=== PATIENT | male | born 1975 | race Caucasian/White ===

== ENCOUNTER 2020-11-21 20:20 | Emergency (ER) | payer BC, SELFPAY ==
--- NOTE | 2020-11-21 | ECG_ITS ---
Test Reason : CHEST PAIN Blood Pressure : / mmHG Vent. Rate : 102 BPM Atrial Rate : 102 BPM P-R Int : 124 ms QRS Dur : 096 ms QT Int : 354 ms P-R-T Axes : 021 -12 012 degrees QTc Int : 461 ms Sinus tachycardia Otherwise normal ECG No previous ECGs available Referred By: Patrice Amaral Electronically Signed By:Ap Campbell
--- NOTE | ~2020-11-21 | CT_ITS ---
EXAMINATION: CT ANGIOGRAM OF THE CHEST WITH AND WITHOUT CONTRAST (CT PULMONARY ANGIOGRAM FOR PE) CLINICAL INFORMATION: Reason for Exam chest pain COMPARISON: None TECHNIQUE: Prior to contrast administration, noncontrast localization images were obtained. Subsequently, multidetector volumetric imaging was performed from the thoracic inlet to below the diaphragms following the administration of 71 mL Omnipaque 350 intravenous contrast. No contrast reaction reported Sagittal, coronal, and MIP oblique sagittal reformatted images were obtained on the CT workstation, uploaded to PACS, and reviewed. This CT examination was performed using dose optimization techniques as appropriate, variously including the following: *Automated exposure control *Adjustment of mA and/or kV according to patient size (this includes techniques or standardized protocols for targeted exams where dose is matched to indication/reason for exam; i.e. extremities or head) *Use of iterative reconstruction technique Total exam dose-length product 537 mGy-cm FINDINGS: QUALITY OF STUDY/CONTRAST BOLUS: Satisfactory. PULMONARY ARTERIES: No central or segmental pulmonary emboli. THORACIC AORTA: No aneurysm or dissection. LUNG: There is bibasilar atelectasis. PLEURA: No pleural effusion or pneumothorax. MEDIASTINUM: Normal heart size. No pericardial effusion. No hilar or mediastinal lymphadenopathy. No evidence of septal bowing or right heart strain. CHEST WALL/AXILLA: No axillary or internal mammary lymphadenopathy. OSSEOUS STRUCTURES: No acute or suspicious osseous abnormality. UPPER ABDOMEN: Visualized liver, spleen, pancreas and bilateral adrenal glands are unremarkable. No reflux of contrast into the hepatic veins to suggest elevated right heart pressures. CT/CT angio chest PE protocol IMPRESSION: No evidence of PE. No evidence of aortic dissection. Bibasilar dependent atelectasis. VTE: negative
--- NOTE | ~2020-11-21 | XR_ITS ---
EXAMINATION: XR CHEST CLINICAL INFORMATION: Pain COMPARISON: None TECHNIQUE: 2 views view of the chest was obtained. FINDINGS: By basilar atelectasis/early infiltrates. The mid-upper lung zones are grossly clear. There is no significant effusion. Indistinct hilar structures. Not felt to be pathologically enlarged. XR/XR chest 1V IMPRESSION: By basilar areas of atelectasis/infiltrate.
[2020-11-21 20:54] VITALS: BP 142/81; PULSE 90; RESP 18; TEMP 37; O2SAT 95; BMI 29.4
[2020-11-21 21:12] LABS: MANUAL DIFF FLAG NO
[2020-11-21 21:16] LABS: Basophils Percent Auto 0.3 % (0-2); Eosinophils Percent Auto 0.1 % (0-4); Hematocrit 45.1 % (42-52); Hemoglobin 15.2 g/dl (14.0-18.0); Imm Gran Abs Auto 0.07 X10*3/uL (0.00-0.03); Imm Gran Pct Auto 0.4 % (0.0-0.4); Lymphocytes Absolute Auto 1.2 X10*3/uL (1.2-4.9); Lymphocytes Percent Auto 7.4 % (20-40); Mean Corpuscular HGB Conc 33.7 g/dl (31.0-36.0); Mean Corpuscular Hemoglobin 30.4 pg (27.0-33.0); Mean Corpuscular Volume 90.2 fL (80-98); Mean Platelet Volume 9.9 fL (9.4-12.4); Monocytes Absolute Auto 1.1 X10*3/uL (0.1-1.2); Monocytes Percent Auto 6.9 % (2-11); Neutrophils Absolute Auto 13.4 X10*3/uL (2.0-8.3); Neutrophils Percent Auto 84.9 % (45-73); Platelet Count 260 X10*3/uL (160-400); Red Cell Distribution Width 12.8 % (11.0-16.0); White Blood Count 15.8 X10*3/uL (4.8-10.8)
[2020-11-21 21:38] LABS: Anion Gap 18 (12-20); Blood Urea Nitrogen 17 mg/dL (9-16); Calcium 9.4 mg/dL (8.4-10.2); Carbon Dioxide 21 mmol/L (22-29); Chloride 101 mmol/L (96-108); Creatinine Clr Calc Pharmacy 134.9; Estimated Glomerular Filt Rate > 60; Glucose Random 113 mg/dL (60-115); Potassium 4.1 mmol/L (3.3-5.1); Sodium 136 mmol/L (135-145)
[2020-11-21 21:44] LABS: Troponin-I High Sensitivity 3.8 ng/L (<3.5-35.0)
--- NOTE | 2020-11-21 21:45 | ED_ITS ---
HPI - Chest Pain General Chief Complaint: Chest Pain Stated Complaint: CHEST PAIN Time Seen by Provider: 11/21/20 21:45 Source: patient Mode of arrival: ambulatory Limitations: no limitations History of Present Illness HPI narrative: Patient history of depression no known coronary artery disease comes here for chest discomfort since 08:00 when he woke up feels heavy in the chest read pain goes to the back occasional cough slight shortness of breath no fever or chills no body ache no malaise . Patient stays at home most of the times denies any contact with COVID. Patient never had similar pain in the past Related Data Previous Rx's Medication Instructions Recorded bupropion HCl 150 mg 24 hr tablet, 150 mg PO QAM 10 Days #10 tab 08/21/20 extended release bupropion HCl 300 mg 24 hr tablet, 300 mg PO QAM 10 Days #10 tab 08/21/20 extended release vilazodone 20 mg tablet 20 mg PO DAILY 10 Days #10 tab 08/21/20 azithromycin [Zithromax] 250 mg PO DAILY 4 Days #4 tab 11/22/20 Allergies Allergy/AdvReac Type Severity Reaction Status Date / Time No Known Allergies Allergy Verified 11/21/20 20:53 Review of Systems Review of Systems: Constitutional : No Weight loss, No Fever, No Chills ENT/Mouth : No sore throat, No Rhinorrhea Eyes: No Eye Pain, No Swelling Cardiovascular : + Chest Pain, no palpitations Respiratory : occasional Cough, No Sputum, no shortness of breath Gastrointestinal : no Nausea, No Vomiting, No Diarrhea, No abdominal Pain, no black stools Genitourinary : No Dysuria, No Urinary Frequency Musculoskeletal : No joint pain, No Myalgias, No Joint Swelling Skin : No Skin Lesions, No rash Neuro : No Weakness, No Numbness, No Dizziness, No Headache Psych : No Anxiety/Panic, No Depression Heme/Lymph: No Bruising, No Lymphadenopathy Endocrine : No Polyuria, No Polydipsia All other systems reviewed and are negative [facility] Social History Social History Advance Directives: No Advance Directives Information Provided: Yes Physical Exam Vital Signs: Vital Signs: Last Vital Signs Temp 98.6 F 11/21/20 20:54 Pulse 94 11/21/20 23:21 Resp 22 H 11/21/20 23:21 BP 133/87 11/21/20 23:21 Pulse Ox 96 11/21/20 23:21 Body Mass Index 29.4 Appearance: Alert. Oriented X3. Slight anxious no acute distress Eyes: Pupils equal, round and reactive to light. ENT: Pharynx normal. Neck: Normal inspection. Neck supple. CVS: Normal heart rate and rhythm. Pulses normal. Respiratory: No respiratory distress. Breath sounds normal. Abdomen: Soft and nontender. Bowel sounds are present, no mass palpable, no CVA tenderness Skin: Skin warm and dry. Normal skin color. Normal skin turgor. Extremities: No lower extremity edema. No calf tenderness Neuro: Oriented X 3. No motor deficit. No sensory deficit. MDM - Chest Pain MDM Narrative Medical decision making narrative: Patient with nonspecific chest pain with slight J-point elevation in 1 in aVL without any reciprocal changes will repeat EKG to CTA chest to rule out PE initial high sensitive troponin is negative Patient repeat high sensitive troponin without any significant delta change CT chest negative for PE likely patient has pleurisy will give a course of Zithromax advised to follow with cardiology for further evaluation Differential Diagnosis Differential diagnosis: Likely atypical chest pain and chest pain Lab Data Attestation: I reviewed the patient's lab results. Result diagrams: 11/21/20 21:07 11/21/20 21:07 Labs: Lab Results 11/21/20 11/21/20 11/21/20 Range/Units 21:06 21:07 21:07 WBC 15.8 H (4.8-10.8) X10*3/uL RBC 5.00 (4.60-5.80) X10*6/uL Hgb 15.2 (14.0-18.0) g/dl Hct 45.1 (42-52) % MCV 90.2 (80-98) fL MCH 30.4 (27.0-33.0) pg MCHC 33.7 (31.0-36.0) g/dl RDW 12.8 (11.0-16.0) % Plt Count 260 (160-400) X10*3/uL MPV 9.9 (9.4-12.4) fL Immature Gran % (Auto) 0.4 (0.0-0.4) % Neut % (Auto) 84.9 H (45-73) % Lymph % (Auto) 7.4 L (20-40) % [place] % (Auto) 6.9 (2-11) % Eos % (Auto) 0.1 (0-4) % Baso % (Auto) 0.3 (0-2) % Lymph # (Auto) 1.2 (1.2-4.9) X10*3/uL [place] # (Auto) 1.1 (0.1-1.2) X10*3/uL Eos # (Auto) 0.0 (0.0-0.4) X10*3/uL Baso # (Auto) 0.0 (0.0-0.2) X10*3/uL Abs Immat Gran (auto) 0.07 H (0.00-0.03) X10*3/uL Absolute Neuts (auto) 13.4 H (2.0-8.3) X10*3/uL Absolute Nucleated RBC 0.000 (0.0-0.012) X10*3/uL Nucleated RBC % (auto) 0.0 (0.0-0.2) /100WBC PT 13.1 H (10.8-13.0) SEC INR 1.1 (0.9-1.1) APTT 37.9 (24.1-38.0) SEC D-Dimer < 200 NG/ML Hold Blue Top SEE NOTE Sodium 136 (135-145) mmol/L Potassium 4.1 (3.3-5.1) mmol/L Chloride 101 (96-108) mmol/L Carbon Dioxide 21 L (22-29) mmol/L Anion Gap 18 (12-20) BUN 17 H (9-16) mg/dL Creatinine 0.80 (0.5-1.4) mg/dL Estim Creat Clear Calc 134.9 Estimated GFR > 60 Random Glucose 113 (60-115) mg/dL Calcium 9.4 (8.4-10.2) mg/dL Troponin I High Sens (<3.5-35.0) ng/L COVID-19 (JANEY) (Negative) COVID-19 Clin Com 11/21/20 11/21/20 11/21/20 Range/Units 21:07 22:01 23:24 WBC (4.8-10.8) X10*3/uL RBC (4.60-5.80) X10*6/uL Hgb (14.0-18.0) g/dl Hct (42-52) % MCV (80-98) fL MCH (27.0-33.0) pg MCHC (31.0-36.0) g/dl RDW (11.0-16.0) % Plt Count (160-400) X10*3/uL MPV (9.4-12.4) fL Immature Gran % (Auto) (0.0-0.4) % Neut % (Auto) (45-73) % Lymph % (Auto) (20-40) % [place] % (Auto) (2-11) % Eos % (Auto) (0-4) % Baso % (Auto) (0-2) % Lymph # (Auto) (1.2-4.9) X10*3/uL [place] # (Auto) (0.1-1.2) X10*3/uL Eos # (Auto) (0.0-0.4) X10*3/uL Baso # (Auto) (0.0-0.2) X10*3/uL Abs Immat Gran (auto) (0.00-0.03) X10*3/uL Absolute Neuts (auto) (2.0-8.3) X10*3/uL Absolute Nucleated RBC (0.0-0.012) X10*3/uL Nucleated RBC % (auto) (0.0-0.2) /100WBC PT (10.8-13.0) SEC INR (0.9-1.1) APTT (24.1-38.0) SEC D-Dimer NG/ML Hold Blue Top Sodium (135-145) mmol/L Potassium (3.3-5.1) mmol/L Chloride (96-108) mmol/L Carbon Dioxide (22-29) mmol/L Anion Gap (12-20) BUN (9-16) mg/dL Creatinine (0.5-1.4) mg/dL Estim Creat Clear Calc Estimated GFR Random Glucose (60-115) mg/dL Calcium (8.4-10.2) mg/dL Troponin I High Sens 3.8 5.9 D (<3.5-35.0) ng/L COVID-19 (JANEY) Negative (Negative) COVID-19 Clin Com See Note ECG Data ECG #1: Attestation: I personally reviewed and interpreted this ECG as follows: Interpretation: Sinus tachycardia with heart rate 102 beats per minute normal intervals normal axis J-point elevation lead 1 and AVR with no reciprocal changes no acute ischemia Discharge Plan Discharge Clinical Impression: Chest pain Qualifiers: Chest pain type: precordial pain Qualified Code(s): R07.2 - Precordial pain Patient Disposition: Home, Self-Care Instructions: Chest Pain (ED) Additional Instructions: Etiology of chest pain is not clear possible pleurisy. Follow-up with PCP/scientific technical writer for further evaluation including stress test if pain continues Take baby aspirin daily Antibiotic as advised for possible early bronchitis Report to the ER if pain continues Prescriptions: New azithromycin [Zithromax] 250 mg tablet 250 mg PO DAILY 4 Days Qty: 4 RF: 0 No Action bupropion HCl 150 mg tablet extended release 24 hr 150 mg PO QAM 10 Days Qty: 10 RF: 0 bupropion HCl 300 mg tablet extended release 24 hr 300 mg PO QAM 10 Days Qty: 10 RF: 0 Viibryd 20 mg tablet 20 mg PO DAILY 10 Days Qty: 10 RF: 0 Referrals: Joe Rosado MD [Physician] - 2 days Interventions: ED Discharge Assessment Last Done: 11/22/20 00:44 Discharge Date/Time: 11/22/20 00:00
--- NOTE | 2020-11-21 22:00 | ECG_ITS ---
Test Reason : CP Blood Pressure : / mmHG Vent. Rate : 091 BPM Atrial Rate : 091 BPM P-R Int : 130 ms QRS Dur : 098 ms QT Int : 366 ms P-R-T Axes : 032 -11 017 degrees QTc Int : 450 ms Normal sinus rhythm Normal ECG When compared to the previous EKG of No significant changes seen Referred By: Patrice Amraal Electronically Signed By:Ap Campbell
[2020-11-21] MEDS: iohexoL 350 MG/ML 75 ML INFUS..BTL IV (22:13)
[2020-11-21 22:19] LABS: INTERNATIONAL NORM RATIO 1.1 (0.9-1.1); Prothrombin Time 13.1 SEC (10.8-13.0)
[2020-11-21 22:20] LABS: COVID-19 Test Negative (Negative)
[2020-11-21 22:22] LABS: Partial Thromboplastin Time 37.9 SEC (24.1-38.0)
[2020-11-21 22:24] LABS: D Dimer < 200 NG/ML
[2020-11-21 23:21] VITALS: BP 133/87; PULSE 94; RESP 22; O2SAT 96
--- NOTE | 2020-11-21 23:22 | PC.NURSE ---
This RN assuming care of this pt. Pt found sitting upright in bed, CAOx4, speaking full sentences. Pt reporting 8/10 right sided chest discomfort radiating into his back which woke him up this morning. Pt aware of plan to repeat Troponin and medicate for pain. VSS at this time. Continue to monitor.
[2020-11-21] MEDS: Ketorolac Tromethamine 30 MG/ML VIAL IVPUSH (23:37)
[2020-11-21] MEDS: Azithromycin 500 MG TABLET PO (23:37)
--- NOTE | 2020-11-21 23:38 | PC.NURSE ---
Medicated per MAR.
[2020-11-22 00:04] LABS: Troponin-I High Sensitivity 5.9 ng/L (<3.5-35.0)
== END 2020-11-22 | disposition home or self-care (01) ==
PROVIDERS: Emergency Medicine Emergency Medical Services; Emergency Provider Internal Medicine; PCP Physician Assistant
DX: R07.2 Precordial pain (principal); Z20.822 Contact with and (suspected) exposure to COVID-19; F32.9 Major depressive disorder, single episode, unspecified; Z79.899 Other long term (current) drug therapy
CPT/HCPCS: 36415; 71045; 71275; 80048; 84484; 85025; 85379; 85610; 85730; 87635; 93005; 96374; 99284; J1885; Q9967

== ENCOUNTER 2021-11-25 14:55 | Outpatient (REF) | payer BC, SELFPAY ==
[2021-11-25 15:37] LABS: Hematocrit 42.6 % (42.0-52.0); Mean Corpuscular HGB Conc 32.9 g/dl (31.0-36.0); Mean Corpuscular Hemoglobin 30.4 pg (27.0-33.0); Mean Corpuscular Volume 92.4 fL (80.0-98.0); Mean Platelet Volume 10.4 fL (9.4-12.4); Platelet Count 254 X10*3/uL (160-400); Red Blood Count 4.61 X10*6/uL (4.60-5.80); Red Cell Distribution Width 12.3 % (11.0-16.0); White Blood Count 6.1 X10*3/uL (4.8-10.8)
[2021-11-25 15:47] LABS: Estimated Average Glucose 108 mg/dL; Hemoglobin A1c % 5.4 %
[2021-11-25 16:09] LABS: Alanine Aminotransferase 35 U/L (0-40); Albumin Level 4.5 g/dL (3.5-5.0); Alkaline Phosphatase 45 U/L (39-117); Anion Gap 9 (12-20); Aspartate Amino Transferase 26 U/L (5-37); Bilirubin Total 1.3 mg/dL (0.0-1.0); Blood Urea Nitrogen 13 mg/dL (9-16); Calcium 9.8 mg/dL (8.4-10.2); Carbon Dioxide 28 mmol/L (22-29); Chloride 103 mmol/L (96-108); Cholesterol 231 mg/dL; Estimated Glomerular Filt Rate > 60; Glucose Fasting 98 mg/dL (60-99); HDL Cholesterol 44 mg/dL; LDL Cholesterol Calculated 144 mg/dl; Potassium 4.1 mmol/L (3.3-5.1); Sodium 136 mmol/L (135-145); Total Protein 7.7 g/dL (6.5-8.0); Triglycerides 215 mg/dL
[2021-11-25 16:25] LABS: TSH reflex Free T4 1.58 uIU/mL (0.32-4.0)
== END 2021-11-25 14:56 | disposition home or self-care (01) ==
LOC: HO.LAB 14:55
PROVIDERS: PCP Physician Assistant; Visit Provider Physician Assistant
DX: Z13.1 Encounter for screening for diabetes mellitus (principal); Z13.220 Encounter for screening for lipoid disorders; Z13.29 Encounter for screening for other suspected endocrine disorder
CPT/HCPCS: 36415; 80053; 80061; 83036; 84443; 85027

== ENCOUNTER 2023-04-13 10:32 | Outpatient (AMB) | payer BC, SELFPAY ==
[2023-04-13 10:33] VITALS: BP 142/96; TEMP 25.5; O2SAT 98; BMI 28.9
--- NOTE | 2023-04-13 10:33 | MHC.PC.OV ---
Vital Signs 04/13/23 10:33 Height 5 ft 10 in Weight 201 lb 4 oz BMI 28.9 BP 142/96 H Blood Pressure Location Lt brachial Position Sitting Temp 78 F L Temp Source Temporal Artery Scan Pulse Oximetry (%) 98 Oxygen Delivery Method Room Air Intake Visit Reasons: s/p neck surgery Intake Note: Patient is here today for a physical. Lube Man Required: No Accompanied by: Self / Same As Patient Allergies No Known Allergies Allergy (Verified 04/13/23 10:50) Medication List - Last Reconciled 04/13/23 by Luis Morrow PA-C No Known Home Meds Tobacco use date assessed: 04/13/23 Dental Screening Dental Screen Date: 04/13/23 Did you have a dental visit in the last 12 months?: No Did you have a dental problem in the last 6 months where you did not have access to dental care?: No Was dental information given to patient?: Patient has dentist HPI s/p neck surgery HPI Details Patient is a 47-year-old male here today for routine annual physical. Patient's past medical history significant for left scapular dyskinesiay, CErvical spine disc disease. He is followed by Orthopedics. Recently underwent a cervical spine fusion with good results of regaining strength and feeling in his left upper extremity. Patient is active in the . Concerns--> Reports whenever he is doing work with his hands that required a lot of dexterity does experience his right thumb locking. He would like to see orthopedic for evaluation of possible injection. Vaccines: UTD with COVID, tetanus, flu Colon cancer screening: Willing to do Cologuard [facility] Surgical History (Updated 04/13/23 @ 11:06 by Luis Morrow PA-C) H/O arthroscopic knee surgery S/P cervical spinal fusion Family History Mother DMII (diabetes mellitus, type 2) CHF (congestive heart failure) Father Pacemaker Social History (Updated 04/13/23 @ 10:53 by Luis Morrow PA-C) Housing: House Alcohol intake: current Alcohol intake frequency: holidays/special occasions only Alcohol type: beer Patient Tobacco Use Status: Current someday Tobacco user Tobacco use type: Cigarette e-Cigarette/Vaping Use: Never Used service: Yes Current occupational status: employed Current occupation: [employer] Cognitive needs: No Hearing needs: No Vision needs: No Questionnaire PHQ-9 Over the last 2 weeks, how often have you been bothered by any of the following problems? 1. Little interest or pleasure in doing things: not at all 2. Feeling down, depressed, or hopeless: not at all 3. Trouble falling or staying asleep, or sleeping too much: not at all 4. Feeling tired or having little energy: not at all 5. Poor appetite or overeating: not at all 6. Feeling bad about yourself - or that you are a failure or have let yourself or your family down: not at all 7. Trouble concentrating on things, such as reading the newspaper or watching television: not at all 8. Moving or speaking so slowly that other people could have noticed. Or the opposite - being so fidgety or restless that you have been moving around a lot more than usual: not at all 9. Thoughts that you would be better off or of hurting yourself in some way: not at all Total score: 0 Depression Screening Interpretation: Negative 08025 - PHQ-9 Billing: Yes Source: Developed by Drs. Jai Faust, Candida Grissom, Teo Mckenzie and colleagues, with an educational bola from [employer]. Thrive Questionnaire Date Thrive assessed: 04/13/23 I am a: Patient What is your living situation today?: I have a steady place to live Within the past 12 months, did the food you bought not last and you didn't have the money to get more?: Never true Within the past 12 months, did you worry whether your food would run out before you got money to buy more?: Never true Do you have trouble paying for medicines?: No Do you have trouble getting transportation to medical appointments?: No Do you have trouble paying your heating and electricity bill?: No Do you have trouble taking care of your child, family member or friend?: No Do you have trouble with day-to-day activities such as bathing, preparing meals, shopping, managing finances, etc.?: No Are you currently unemployed and looking for a job?: No Are you interested in more education?: No Please select the resources that you would like help with: None Currently or been in a relationship where the following occur: no concerns reported AUDIT C Alcohol Use Questionnaire (AUDIT-C) 1. How often do you have a drink containing alcohol?: Monthly or less 2. How many drinks containing alcohol do you have on a typical day when you are drinking?: 1 or 2 3. How often do you have six or more drinks on one occasion?: Never Total Score: 1 ANNE MARIE-7 AMB Questionnaire ANNE MARIE-7 Date ANNE MARIE - 7 assessed: 04/13/23 Feeling nervous, anxious, or on edge: 0 = Not at all Not being able to stop or control worryin = Not at all Worrying too much about different things: 0 = Not at all Trouble relaxin = Not at all Being so restless that it is hard to sit still: 0 = Not at all Becoming easily annoyed or irritable: 0 = Not at all Feeling afraid as if something awful might happen: 0 = Not at all Total ANNE MARIE-7 score (0-4 normal; 5-9 mild; 10-14 moderate; 15-21 severe): 0 Source: Developed by Drs. Jai Faust, Candida Grissom, Teo Mckenzie and colleagues, with an educational bola from [employer]. ANNE MARIE-7 Assessment Billing ANNE MARIE-7 Assessment Tool: ANNE MARIE-7 Assessment [id number] Physical exam (Primary Care) Vital Signs: Last Vital Signs Temp 78 F L 04/13/23 10:33 BP 142/96 H 04/13/23 10:33 Pulse Ox 98 04/13/23 10:33 Oxygen Delivery Method Room Air 04/13/23 10:33 BMI result Body Mass Index 28.9 Tobacco/Smoking Status: Tobacco use Status Patient Tobacco Use Status Current someday Tobacco 04/13/23 10:33 Tobacco use type Cigarette 04/13/23 10:33 Depression Screening Interpretation: Negative Currently or been in a relationship where the following occur: no concerns reported Assessment and Plan Assessment & Plan (1) Annual physical exam: Code(s): Z00.00 - Encounter for general adult medical examination without abnormal findings (2) Cervical spine disease: Code(s): M48.9 - Spondylopathy, unspecified Plan: Recently underwent cervical spine fusion in January of 2023. Reports he has gained his strength in feeling in his left arm. Also going to pain management for injections. Managing his pain with [id number] meds at this time. (3) Scapular dyskinesis: Code(s): G25.89 - Other specified extrapyramidal and movement disorders Plan: Again seeing pain management. Managing his pain with over counter meds and injections. (4) Borderline high cholesterol: Code(s): E78.9 - Disorder of lipoprotein metabolism, unspecified Plan: Patient's most recent lipid panel showing borderline high total cholesterol 231. He will work on lifestyle modifications on reducing high cholesterol foods. (5) Screening for diabetes mellitus (DM): Code(s): Z13.1 - Encounter for screening for diabetes mellitus (6) Trigger thumb of right hand: Code(s): M65.311 - Trigger thumb, right thumb Plan: Reports whenever he is doing work with his hands that required a lot of dexterity does experience his right thumb locking. He would like to see orthopedic for evaluation of possible injection. Orders: Orders Comprehensive [place]. Panel Fast Today Z13.1 - Encounter for screening for diabetes mellitus Lipid Panel Today E78.9 - Disorder of lipoprotein metabolism, unspecified Complete Blood Count no Diff Today E78.9 - Disorder of lipoprotein metabolism, unspecified Referrals Cologuard Test Z12.11 - Encounter for screening for malignant neoplasm of colon Orthopedics Referral M65.311 - Trigger thumb, right thumb Coding Level of Care Code Est Pt Prev Care 40-64y(15866) Diagnoses Annual physical exam Z00.00 Cervical spine disease M48.9 Scapular dyskinesis G25.89 Borderline high cholesterol E78.9 Screening for diabetes mellitus (DM) Z13.1 Trigger thumb of right hand M65.311 Additional Codes ANNE MARIE-7 Assessment Billing - ANNE MARIE-7 Assessment Tool: ANNE MARIE-7 Assessment [id number] ([id number])
== END 2023-04-13 12:07 | disposition home or self-care (01) ==
PROVIDERS: PCP Physician Assistant; Visit Provider Physician Assistant
DX: Z00.00 Encounter for general adult medical examination without abnormal findings (principal); M48.9 Spondylopathy, unspecified; G25.89 Other specified extrapyramidal and movement disorders; E78.9 Disorder of lipoprotein metabolism, unspecified; Z13.1 Encounter for screening for diabetes mellitus; M65.311 Trigger thumb, right thumb
CPT/HCPCS: 99396

== ENCOUNTER 2023-05-22 11:37 | Outpatient (AMB) | payer BC, SELFPAY ==
--- NOTE | 2023-05-22 11:40 | A.OFFVIS_ITS ---
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 Denies injury, pain, numbness or tingling. His thumb locks causing him to drops items. No previous tx. He would like to discuss injection today. 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 He states he has locking and catching in his right thumb for about 10 years. He also reports he frequently drop items due to locking of his thumb. He denies any recent injury, pain, numbness or tingling. He has not had any treatment in the past. He would like to discuss about having an injection today. [facility] Surgical History S/P cervical spinal fusion H/O arthroscopic knee surgery Family History Mother DMII (diabetes mellitus, type 2) CHF (congestive heart failure) Father Pacemaker Social History Housing: House Alcohol intake: current Alcohol intake frequency: holidays/special occasions only Alcohol type: beer Patient Tobacco Use Status: Current someday Tobacco user Tobacco use type: Cigarette e-Cigarette/Vaping Use: Never Used service: Yes Current occupational status: employed Current occupation: [employer] Cognitive needs: No Hearing needs: No Vision needs: No Review of Systems Const All systems reviewed & are unremarkable except as noted in HPI and below Physical Exam Vital Signs: BMI result Body Mass Index 28.8 Const General: cooperative, healthy appearing, comfortable, no acute distress, well developed and alert Orientation/consciousness: patient oriented x3 HEENT Head: Yes normal to inspection, Yes normocephalic and Yes atraumatic Eyes General: appearance normal, both eyes and all related structures Resp Effort & Inspection: normal respiratory effort and able to speak in complete sentences Cardio Rate: regular rate Peripheral pulses: Peripheral pulses 2+ throughout GI Palpation (GI): Soft to palpation Skin Lesions: no lesions Rashes: no rashes Neuro General: patient oriented x3 Extrem Other: Right thumb: Tender nodule along the A1 radhika with active catching and locking. NVI. Assessment & Plan Assessment & Plan (1) Trigger thumb of right hand: Code(s): M65.311 - Trigger thumb, right thumb Plan We discussed options which include conservative vs operative treatment. Since the patient has been symptomatic for several months and it is impacting their daily life, the decision was made to undergo Trigger release. We discussed risk, benefits and alternatives. Risk including but not limited to infection, stiffness, ongoing trigger or catching. He does understand all this and would like to proceed with right thumb trigger release under local anesthesia with Dr. Torres. He will be booked accordingly. Patient Instructions: Scribed for Georgina Watkins PA-C, by Claude Campa, medical referral coordinator, on 05/22/2023 at 11:15 AM EST. I, Georgina Watkins PA-C, have personally reviewed and agree with the information entered by the scribe. Coding Level of Care Code New Pt Level 4 (47105) Diagnoses Trigger thumb of right hand M65.311
[2023-05-22 11:43] VITALS: BMI 28.8
== END 2023-05-22 12:11 | disposition home or self-care (01) ==
PROVIDERS: PCP Physician Assistant; Visit Provider Physician Assistant
DX: M65.311 Trigger thumb, right thumb (principal)
CPT/HCPCS: 99204

== ENCOUNTER → 2023-05-22 11:37 | Outpatient (BNVA) | payer BC, SELFPAY | PROVIDERS: PCP Physician Assistant; Visit Provider Physician Assistant ==

== ENCOUNTER 2023-07-14 14:52 | Outpatient (AMB) | payer BC, SELFPAY ==
[2023-07-14 14:57] VITALS: BP 144/88; PULSE 94; BMI 29.6
--- NOTE | 2023-07-14 14:57 | A.OFFVIS_ITS ---
Intake Vital Signs 07/14/23 14:57 Height 5 ft 10 in Weight 206 lb 8.917 oz BMI 29.6 BP 144/88 H Blood Pressure Location Lt brachial Position Sitting Pulse 94 Intake Visit Reasons: Colonoscopy Screening Intake Note: Patient presents to in office visit today as a new patient for colonoscopy screening. CC: Patient denies having any GI symptoms today. Allergies No Known Allergies Allergy (Verified 07/14/23 14:59) HPI HPI Comments History of Present Illness Details A very pleasant 48 y/o male referred colonoscopy after positive cologuard- No known family history GI cancers He has no sx-fairly normal bowel pattern however he has noted a decrease in matt meter- He has a good appetite No respiratory or cardiac issues No prescribed medications No nausea, vomiting, hematemesis, hematochezia fever chills PFSH Surgical History S/P cervical spinal fusion H/O arthroscopic knee surgery Family History Mother DMII (diabetes mellitus, type 2) CHF (congestive heart failure) Father Pacemaker Maternal Grandfather Pancreatic cancer Maternal Uncle Bone cancer Housing: House Alcohol intake: current Alcohol intake frequency: holidays/special occasions only Alcohol type: beer Patient Tobacco Use Status: Current someday Tobacco user Tobacco use type: Cigarette e-Cigarette/Vaping Use: Never Used service: Yes Current occupational status: employed Current occupation: [employer] Cognitive needs: No Hearing needs: No Vision needs: No Review of Systems Const All systems reviewed & are unremarkable except as noted in HPI and below Card Denies chest pain and Denies dyspnea Resp Denies dyspnea GI Denies abdominal pain, Denies hematochezia, Denies change in bowel habits, Reports change in stool character (Decreased diameter) and Denies loose stools Physical Exam Vital Signs: Last Vital Signs Pulse 94 07/14/23 14:57 BP 144/88 H 07/14/23 14:57 BMI result Body Mass Index 29.6 Const General: cooperative, healthy appearing, comfortable and no acute distress Orientation/consciousness: patient oriented x3 Limitations: no limitations Eyes Sclerae: sclerae normal Resp Effort & Inspection: normal respiratory effort and able to speak in complete sentences Auscultation: clear to auscultation bilaterally, no rales, no rhonchi and no wheezes Cardio Rate: regular rate Rhythm: regular rhythm Heart sounds: S1 normal heart sound present and S2 normal heart sound present Skin General skin exam: no rashes or lesions noted Neuro General: patient oriented x3 Psych Appearance: grossly normal and well kempt Mental Status: mental status grossly normal Speech and movement: Normal speech and movement present and Clear speech present Affect: normal affect Attitude: cooperative Thought process: Normal thought process present Thought content: Normal thought content present Insight: Good insight present (Psych) Judgement: Good judgement present (Psych) Assessment & Plan Assessment & Plan (1) Positive colorectal cancer screening using Cologuard test: Comment: Very pleasant Gent no GI complaints- Discussed Cologuard results, Approximate 13% follows positive -as well there are false negatives. Code(s): R19.5 - Other fecal abnormalities Plan: Colonoscopy MiraLax Gatorade prep Plan Colon screening Orders: Orders Colonoscopy - GI Use Only 07/14/23 R19.5 - Other fecal abnormalities Medications: New polyethylene glycol 3350 (Miralax) Take as directed by mouth the day before your procedure. 238 grams PO ONCE 1 day PRN 238 grams 0RF laxative effect bisacodyl (Dulcolax (bisacodyl)) Day before procedure, prep day Take 4 tablets by mouth upon awakening followed by large glass of water 20 mg (4 x 5 mg) PO ONCE 1 day 4 tabs 0RF colonoscopy prep Z12.11 - Encounter for screening for malignant neoplasm of colon Patient Instructions: 48-year-old male referred with positive Cologuard-no GI complaints Screening colonoscopy MiraLax Gatorade prep, reviewed literature given Encouraged to call questions or concerns Appreciate the opportunity assist in the care this pleasant Gent Coding Level of Care Code New Pt Level 3 (54448) Diagnoses Positive colorectal cancer screening using Cologuard test R19.5 Time Spent (min) 25
--- NOTE | 2023-07-14 14:57 | MHC.OFFVIS ---
Intake Vital Signs 07/14/23 14:57 Height 5 ft 10 in Weight 206 lb 8.917 oz BMI 29.6 BP 144/88 H Blood Pressure Location Lt brachial Position Sitting Pulse 94 Intake Visit Reasons: Colonoscopy Screening Allergies No Known Allergies Allergy (Verified 07/14/23 14:59) PFSH Surgical History S/P cervical spinal fusion H/O arthroscopic knee surgery Family History Mother DMII (diabetes mellitus, type 2) CHF (congestive heart failure) Father Pacemaker Maternal Grandfather Pancreatic cancer Maternal Uncle Bone cancer Housing: House Alcohol intake: current Alcohol intake frequency: holidays/special occasions only Alcohol type: beer Patient Tobacco Use Status: Current someday Tobacco user Tobacco use type: Cigarette e-Cigarette/Vaping Use: Never Used service: Yes Current occupational status: employed Current occupation: [employer] Cognitive needs: No Hearing needs: No Vision needs: No Physical Exam Vital Signs: Last Vital Signs Pulse 94 07/14/23 14:57 BP 144/88 H 07/14/23 14:57 BMI result Body Mass Index 29.6 Assessment & Plan Assessment & Plan Orders: Orders Colonoscopy - GI Use Only 07/14/23 R19.5 - Other fecal abnormalities Medications: New polyethylene glycol 3350 (Miralax) Take as directed by mouth the day before your procedure. 238 grams PO ONCE PRN 238 grams 0RF laxative effect 1 day bisacodyl (Dulcolax (bisacodyl)) Day before procedure, prep day Take 4 tablets by mouth upon awakening followed by large glass of water 20 mg (4 x 5 mg) PO ONCE 4 tabs 0RF colonoscopy prep 1 day Z12.11 - Encounter for screening for malignant neoplasm of colon Coding
== END 2023-07-14 15:30 | disposition home or self-care (01) ==
PROVIDERS: PCP Physician Assistant; Visit Provider Physician Assistant
DX: R19.5 Other fecal abnormalities (principal)
CPT/HCPCS: 99203; 99213

== ENCOUNTER → 2023-07-14 14:52 | Outpatient (BNVA) | payer BC, SELFPAY | PROVIDERS: PCP Physician Assistant; Visit Provider Physician Assistant ==

== ENCOUNTER 2023-07-20 09:27 | Day surgery (SDC) | payer BC, SELFPAY ==
[2023-07-20 10:04] VITALS: BP 154/106; PULSE 82; RESP 18; TEMP 36.8; O2SAT 96; BMI 28.7
--- NOTE | 2023-07-20 11:38 | P.OP_ITS ---
Operative Note Operative Note Date of Service: 07/20/23 Narrative: Operative Note Preop diagnosis: 1. right thumb Trigger finger Postop diagnosis: 1. right thumb Trigger finger Procedure: 1. right thumb A1 radhika release Surgeon: Silvia Torres MD Anesthesia: local block using 1% lidocaine with epinephrine Findings: No locking or catching after A1 radhika release EBL: Less than 5 mL Tourniquet time: None Specimens: None Complications: None Disposition: Brought to recovery room in stable condition Plan: Follow-up for 10-14 days for wound check and suture removal Indications: The patient is 48 years old, with a right trigger thumbthat has been unresponsive to nonoperative management. The risks and benefits of operative treatment including but not limited to risk of damage to blood vessels, nerves, tendons, infection, persistent pain, persistent symptoms, recurrence or possible need for additional surgery were discussed with the patient and the patient wishes to proceed with surgery. Procedure: Once consent was obtained a local block was performed in the preop area using a combination of 1% lidocaine with epinephrine. The patient was then brought back to the operating suite and placed on the operative table in supine position. The right upper extremity was prepped and draped in a standard surgical fashion. Once assured that we had a good block, a 1.5 cm oblique incision was made centered over the A1 radhika of the right thumb . The incision was made through the skin to the subcutaneous tissues using a #15 blade. Careful dissection was made down to the level of the A1 radhika using tenotomy scissors, with care being taken to protect the nearby neurovascular structures. A longitudinal incision was made in the A1 radhika 1st using a #15 blade, then using tenotomy scissors under direct visualization. The A1 radhika was noted to be thickened. Following our A1 radhika release, we no longer saw any locking or catching of the digit with flexion and extension. Once satisfied with our A1 radhika release the w ound was copiously irrigated with normal saline and hemostasis was obtained with a brief period of local pressure. The skin edges were reapproximated with some 5.0 nylon suture material and a sterile dressing was applied. The patient appears to have tolerated the procedure well and with no complications. All digits were well vascularized at the conclusion of the case.
--- NOTE | 2023-07-20 11:38 | MHC.SHP ---
Pre-Procedural Eval Section A Date of Service: 07/20/23 The patient is an INPATIENT: No Changes since office visit: No Cold of Flu in the past 2 weeks, No New Medical Problems, No Changes in Medication and No Patient answered all questions The History & Physical has been completed within 30 days and I have reviewed it.: Yes Section B Chief Complaint: Trigger thumb, right thumb Allergies: Allergies Allergy/AdvReac Type Severity Reaction Status Date / Time No Known Allergies Allergy Verified 07/14/23 14:59 Plan I have reviewed the history and physical and performed a pertinent physical examination on my patient. No changes have occurred unless specified. Time Spent With Patient Time: Total time managing care of this patient today ____ minutes.
[2023-07-20 12:05] VITALS: BP 154/95; PULSE 81; RESP 16; O2SAT 99
== END 2023-07-20 12:30 | disposition home or self-care (01) ==
PROVIDERS: PCP Physician Assistant; Visit Provider Orthopaedic Surgery
PROC: (CPT 26055; principal; 2023-07-20 10:40)
DX: M65.311 Trigger thumb, right thumb (principal); Z98.890 Other specified postprocedural states; Z98.1 Arthrodesis status; F17.210 Nicotine dependence, cigarettes, uncomplicated
CPT/HCPCS: 26055; J0171

== ENCOUNTER → 2023-07-20 09:27 | Outpatient (BNV) | payer BC, SELFPAY | PROVIDERS: PCP Physician Assistant; Visit Provider Orthopaedic Surgery | DX: M65.311 Trigger thumb, right thumb (principal) | CPT/HCPCS: 26055 ==

== ENCOUNTER 2023-08-06 09:58 | Outpatient (AMB) | payer BC, SELFPAY ==
--- NOTE | 2023-08-06 10:05 | MHC.OFFVIS ---
Intake Intake Visit Reasons: PO-Rt Thumb Trigger 07/20 Intake Note: Simone a 47 year old right hand dominant male who presents today for a post op appointment Rt Thumb Trigger 07/20/23 AR. Patient reports not doing so good. He states that his incision site is tender and it unable to apply pressure. Allergies No Known Allergies Allergy (Verified 08/06/23 10:05) HPI PO-Rt Thumb Trigger 07/20 HPI Details 48-year-old male who presents in the office today 17 days status post right thumb A1 radhika release, which was performed on 07/20/[address] Torres. The patient reports he is not doing well at this time. He states the incision site is tender and he is unable to apply pressure to the right hand. [facility] Surgical History S/P cervical spinal fusion H/O arthroscopic knee surgery Family History Mother DMII (diabetes mellitus, type 2) CHF (congestive heart failure) Father Pacemaker Maternal Grandfather Pancreatic cancer Maternal Uncle Bone cancer Social History Housing: House Alcohol intake: current Alcohol intake frequency: holidays/special occasions only Alcohol type: beer Comment: counts correct Patient Tobacco Use Status: Current someday Tobacco user Tobacco use type: Cigarette e-Cigarette/Vaping Use: Never Used service: Yes Current occupational status: employed Current occupation: [employer] Cognitive needs: No Hearing needs: No Vision needs: No Review of Systems Const All systems reviewed & are unremarkable except as noted in HPI and below Physical Exam Const General: cooperative, healthy appearing and no acute distress Resp Effort & Inspection: normal respiratory effort and able to speak in complete sentences Cardio Rate: regular rate Peripheral pulses: Peripheral pulses 2+ throughout GI Palpation (GI): Soft to palpation Skin Lesions: no lesions Rashes: no rashes Extrem Other: Right thumb incision site is intact. Sutures intact. Surrounding tissue is pale in color but viable. Around the pale tissue is mildly erythematous. No tenderness to palpation over the flexor or extensor tendons. Tenderness to palpation over the thenar eminance surrounding the incision site. No definite signs of infection. Able to flex and extend at the IP and CMC but significantly limited due to pain. Sensation is intact. Capillary refill is brisk. Assessment & Plan Assessment & Plan (1) Trigger thumb of right hand: Comment: Right thumb A1 radhika release 07/20/2023 AR Code(s): M65.311 - Trigger thumb, right thumb Plan Mr. Santo is a 48-year-old male who presents in the office today 17 days status post right thumb A1 radhika release, which was performed on 07/20/[address] Torres. The patient reports he is not doing well at this time. He states the incision site is tender and he is unable to apply pressure to the right hand. Out of an abundance of caution I have sent in a prescription for Sulfamethoxazole-trimethoprim 800-160 mg (Bactrim DS) PO BID for 7 days to the pharmacy. He was educated on signs of infection, which are as follows but not limited to erythema, edema, drainage, or warmth. If he is to experience any of these symptoms he is to contact the office immediately or present to the ED. Follow up will be in 1 week for a wound check, or sooner if needed, or sooner if needed. Medications: New sulfamethoxazole-trimethoprim 800-160 mg (Bactrim DS) 1 tab PO BID 14 tabs 0RF 7 days Patient Instructions: Scribed for Merna Sykes PA-C by Cassie Manzano medical instrument cable fabricator, on 08/06/2023 at 9:59 am, EST. Coding Level of Care Code Global (56770) Diagnoses Trigger thumb of right hand M65.311
== END 2023-08-06 10:30 | disposition home or self-care (01) ==
PROVIDERS: PCP Physician Assistant; Visit Provider Physician Assistant
DX: M65.311 Trigger thumb, right thumb (principal)
CPT/HCPCS: 99024

== ENCOUNTER → 2023-08-06 09:58 | Outpatient (BNVA) | payer BC, SELFPAY | PROVIDERS: PCP Physician Assistant; Visit Provider Physician Assistant ==

== ENCOUNTER 2023-08-10 12:46 | Outpatient (AMB) | payer BC, SELFPAY ==
[2023-08-10 12:48] VITALS: BMI 28.7
--- NOTE | 2023-08-10 12:48 | A.OFFVIS_ITS ---
Intake Vital Signs 08/10/23 12:48 Height 5 ft 10 in Weight 200 lb BMI 28.7 Intake Visit Reasons: PO-Rt Thumb Trigger 07/20 Intake Note: Simone a 47 year old right hand dominant male who presents today for a post op appointment Rt Thumb Trigger 07/20/23 AR. States his incision is healing and he is now able to touch his pinky with his thumb. Allergies No Known Allergies Allergy (Verified 08/10/23 12:50) HPI PO-Rt Thumb Trigger 07/20 HPI Details 48-year-old right hand dominant male who presents in the office today for a wound check; 3 weeks status post right thumb A1 radhika release, which was performed on 07/20/[address] Torres. I last saw the patient on 08/06/2023 and out of abundance of caution sent in a prescription for Bactrim 800-160 mg PO BID. He was educated on signs of infection and asked to return in 1 week. [facility] Surgical History S/P cervical spinal fusion H/O arthroscopic knee surgery Family History Mother DMII (diabetes mellitus, type 2) CHF (congestive heart failure) Father Pacemaker Maternal Grandfather Pancreatic cancer Maternal Uncle Bone cancer Social History Housing: House Alcohol intake: current Alcohol intake frequency: holidays/special occasions only Alcohol type: beer Comment: counts correct Patient Tobacco Use Status: Current someday Tobacco user Tobacco use type: Cigarette e-Cigarette/Vaping Use: Never Used service: Yes Current occupational status: employed Current occupation: [employer] Cognitive needs: No Hearing needs: No Vision needs: No Review of Systems Const All systems reviewed & are unremarkable except as noted in HPI and below Physical Exam Vital Signs: BMI result Body Mass Index 28.7 Const General: cooperative, healthy appearing and no acute distress Resp Effort & Inspection: normal respiratory effort and able to speak in complete sentences Cardio Rate: regular rate Peripheral pulses: Peripheral pulses 2+ throughout GI Palpation (GI): Soft to palpation Skin Lesions: no lesions Rashes: no rashes Extrem Other: Right thumb incision site is intact. Dry skin surrounding the incision site with healthy healing tissue. No erythema. No tenderness to palpation over the flexor or extensor tendons. No tenderness to palpation over the thenar eminance surrounding the incision site. No definite signs of infection. Able to flex and extend at the IP and CMC but is slightly limited due to pain. However, this has improved since last visit. Able to reach thumb to little finger. Sensation is intact. Capillary refill is brisk. Assessment & Plan Assessment & Plan (1) Trigger thumb of right hand: Comment: Right thumb A1 radhika release 07/20/2023 AR Code(s): M65.311 - Trigger thumb, right thumb Plan Mr. Santo is a 48-year-old right hand dominant male who presents in the office today for a wound check; 3 weeks status post right thumb A1 radhika release, which was performed on 07/20/[address] Torres. I last saw the patient on 08/06/2023 and out of abundance of caution sent in a prescription for Bactrim 800-160 mg PO BID. He was educated on signs of infection and asked to return in 1 week. The patient will continue with his full course of antibiotics until they are completed. I offered the patient a wound check appointment for Thursday or sometime next week. However, at this time he has declined due to reporting an improvement in pain and therefore, he does not feel he needs to follow up. He was educated on signs of infection, which are as follows but not limited to erythema, edema, drainage, or warmth. If he is to experience any of these symptoms he is to contact the office immediately or present to the ED. He demonstrates understanding. Follow up will be PRN, or sooner if needed. Patient Instructions: Scribed for Merna Sykes PA-C by Cassie Manzano center medical specialist, on 08/10/2023 at 12:47 pm, EST. Coding Level of Care Code Global (71865) Diagnoses Trigger thumb of right hand M65.311
== END 2023-08-10 12:53 | disposition home or self-care (01) ==
PROVIDERS: PCP Physician Assistant; Visit Provider Physician Assistant
DX: M65.311 Trigger thumb, right thumb (principal)
CPT/HCPCS: 99024

== ENCOUNTER → 2023-08-10 12:46 | Outpatient (BNVA) | payer BC, SELFPAY | PROVIDERS: PCP Physician Assistant; Visit Provider Physician Assistant ==

== ENCOUNTER 2023-11-24 07:24 | Day surgery (SDC) | payer BC, SELFPAY ==
--- NOTE | 2023-11-23 10:16 | HO.ANESPROP2 ---
Documented by User: Cassie Barksdale NP 11/23/23 10:16 HPI - Anesthesia Eval Consult details Narrative: 48yo M for Colonoscopy PMFSH Active Problems Active Problems: All Active Problems (Updated 08/06/23 @ 10:16 by Cassie Manzano) Positive colorectal cancer screening using Cologuard test (Acute) Trigger thumb of right hand (Acute) Borderline high cholesterol (Acute) Scapular dyskinesis (Acute) Cervical spine disease (Acute) Hordeolum externum (stye) (Acute) Annual physical exam (Acute) Hordeolum externum right eye, unspecified eyelid (Acute) Family history of heart disease (Acute) Screening for hypothyroidism (Acute) Screening for hypercholesterolemia (Acute) Screening for diabetes mellitus (DM) (Acute) Family History Family History Mother DMII (diabetes mellitus, type 2) CHF (congestive heart failure) Father Pacemaker Maternal Grandfather Pancreatic cancer Maternal Uncle Bone cancer Surgical History Surgical History S/P cervical spinal fusion H/O arthroscopic knee surgery Social History Social History Housing: House Alcohol intake: current Alcohol intake frequency: holidays/special occasions only Alcohol type: beer Comment: counts correct Patient Tobacco Use Status: Current someday Tobacco user Tobacco use type: Cigarette e-Cigarette/Vaping Use: Never Used Use of substances other than those prescribed or required for medical reasons: No Are you DNR?: No Advance Directives: No Advance Directives Information Provided: Yes service: Yes Current occupational status: employed Current occupation: [employer] Cognitive needs: No Hearing needs: No Vision needs: No Meds Allergies Allergy/AdvReac Type Severity Reaction Status Date / Time No Known Allergies Allergy Verified 11/24/23 08:30 Assessment and Plan Assessment Anesthesia Assessment: Chart Reviewed Documented by User: Ally Philip MD 11/24/23 10:25 [facility] Active Problems Active Problems: All Active Problems (Updated 11/24/23 @ 09:04 by Ally Philip MD) Positive colorectal cancer screening using Cologuard test (Acute) Trigger thumb of right hand (Acute) Borderline high cholesterol (Acute) Scapular dyskinesis (Acute) Cervical spine disease (Acute) Hordeolum externum (stye) (Acute) Annual physical exam (Acute) Hordeolum externum right eye, unspecified eyelid (Acute) Family history of heart disease (Acute) Screening for hypothyroidism (Acute) Screening for hypercholesterolemia (Acute) Screening for diabetes mellitus (DM) (Acute) Family History Family History Mother DMII (diabetes mellitus, type 2) CHF (congestive heart failure) Father Pacemaker Maternal Grandfather Pancreatic cancer Maternal Uncle Bone cancer Family history of problems with anesthesia: No Surgical History Surgical History S/P cervical spinal fusion H/O arthroscopic knee surgery History of Problems with Anesthesia: No Social History Social History Housing: House Alcohol intake: current Alcohol intake frequency: holidays/special occasions only Alcohol type: beer Comment: counts correct Patient Tobacco Use Status: Current someday Tobacco user Tobacco use type: Cigarette e-Cigarette/Vaping Use: Never Used Use of substances other than those prescribed or required for medical reasons: No Are you DNR?: No Advance Directives: No Advance Directives Information Provided: Yes service: Yes Current occupational status: employed Current occupation: [employer] Cognitive needs: No Hearing needs: No Vision needs: No Meds Allergies Allergy/AdvReac Type Severity Reaction Status Date / Time No Known Allergies Allergy Verified 11/24/23 08:30 Exam Height,Weight and Vital Signs: Height 5 ft 10 in Weight 92.986 kg Vital Signs Temp Pulse Resp BP Pulse Ox O2 Del Method 11/24/23 08:44 98.6 F 61 16 152/97 H 98 Room Air Airway Mallampati Class: III (Small mouth opening) TM Dist: >3cm Neck ROM: Full (S/p cervical surgery) Loose/Missing/Broken Teeth: No (Denies broken, loose, missing teeth) Heart: RRR Lungs: CTAB Assessment and Plan Assessment Anesthesia Assessment: Anesthesia Plan Discussed and Chart Reviewed Final Anesthetic Review Family History of Problems with Anesthesia: No History of Problems with Anesthesia: No NPO: Yes ASA Class: II Final Preanesthetic Review: No Changes in Pt Med Stat, Meds/Allgs Chart Reviewed, Consent Obtained/Reviewed and Anes Risks/Benef Reviewed Patient Risk: Low Procedure Risk: Low Assessment/Block/Sedation in SS: Assess/Block/Sedation-SS Anesthetic Plan Anesthetic Plan: TIVA Disposition: Standard PACU
[2023-11-24] VITALS (7 sets, daily range): BP systolic 152–170; BP diastolic 90–113; PULSE 55–91; RESP 16–18; TEMP 36.1–37; O2SAT 98–100; BMI 29.4
--- NOTE | 2023-11-24 08:26 | MHC.SHP ---
Pre-Procedural Eval Section A - 24 Hr Update-Section A only Date of Service: 11/24/23 Section B - Complete if H&P > 30 days Chief Complaint: pos cologuard Relevant Family History (Specify if Yes): No Relevant Social History: Tobacco Use Present Medications: see Short Stay Collaborative assessment Medical History: No relevant PMH History of Previous Operations: Relevant previous surgery/procedure and date(s) (S/P cervical spinal fusion H/O arthroscopic knee surgery) Allergies: Allergies Allergy/AdvReac Type Severity Reaction Status Date / Time No Known Allergies Allergy Verified 08/10/23 12:50 Review of Systems Sugical H&P ROS: Negative: Constitution, Cardiovascular, Respiratory, Neurological, Psychiatric, Hem-Onc, Allergic/Immunologic, Gastrointestinal, Genitourinary, Musculoskeletal, Integumentary, Endocrine and Eyes/Ears/Nose/Throat Exam Surgical H&P Exam: Normal: HEENT, Normal: Heart, Normal: Lungs, Normal: Extremities, Normal: Abdomen, Normal: Skin and Normal: Neurological Plan Diagnosis/Plan: Unchanged I have reviewed the history and physical and performed a pertinent physical examination on my patient. No changes have occurred unless specified. Time Spent With Patient Time: Total time managing care of this patient today ____ minutes.
--- NOTE | 2023-11-24 08:38 | P.OP_ITS ---
Operative Note Operative Note Date of Service: 11/24/23 Narrative: Operative Information Procedure Description: Colonoscopy Indication: pos cologuard Anesthesia: MAC but converted to GA with LMA COLONOSCOPY Instrument: Olympus variable stiffness pediatric scope 190L Colonoscopy Monitoring: Vital signs and clinical assessment, continuous EKG monitoring, Pulse oximetry, Carbon Dioxide monitoring and blood pressure monitoring were done throughout the procedure. Colon withdrawal time was 89 minutes. Procedure: The patient was placed in the left lateral decubitis position and pre-procedure medications were administered. After a digital rectal examination of the ano-rectum, the video colonoscope was inserted into the rectum and advanced through the colon to the cecum/TI. The colonoscope was slowly withdrawn in a retrograde panoramic fashion and the colon mucosa was carefully examined including a retroflexed view of the rectum. Findings and interventions are described below. Procedure Difficulty: moderate Findings: Terminal Ileum-normal Cecum:normal Ascending Colon: laterally spreading granular lesion noted in proximal ascending colon about 18 mm x10 mm, injected with eleview but the lift was not very good so then converted to hybrid APC. Polyp removed with stiff sanre and cold snare, with residual tissue removed with cold forceps. APC ablation was then performed at 40 W. Hemospray was then applied to the area. Transverse Colon -normal Descending Colon:normal Sigmoid Colon: x 2 sessile polyps 12-14 mm removed with cold snare Rectum: Retroflexion with small internal hemorrhoids seen, grade I Anorectum - normal Intervention: Hybrid APC, eleview injection Colon preparation: [place] Bowel Preparation Scale Right colon; 2 Transverse colon: 2 Left colon; 3 (0 = Unprepared colon segment with mucosa not seen due to solid stool that cannot be cleared. 1 = Portion of mucosa of the colon segment seen, but other areas of the colon segment not well seen due to staining, residual stool and/or opaque liquid. 2 = Minor amount of residual staining, small fragments of stool and/or opaque liquid, but mucosa of colon segment seen well. 3 = Entire mucosa of colon segment seen well with no residual staining, small fragments of stool or opaque liquid) Impression and Post Procedure Diagnosis: diverticulosis colon polyps internal hemorrhoids Plan: High fiber diet leaflet Avoid straining at stool, epsom salts and sitz bath, anusol supps or cream Repeat Colonoscopy in 6-8 weeks or earlier if clinically indicated --next time use adult scope Above findings were reviewed with the patient and relevant handouts were provided if indicated.
== END 2023-11-24 12:32 | disposition home or self-care (01) ==
PROVIDERS: PCP Physician Assistant; Visit Provider Internal Medicine Gastroenterology
PROC: 0DJD8ZZ Inspection of Lower Intestinal Tract, Via Natural or Artificial Opening Endoscopic (ICD-10-PCS; CPT 45378; principal; 2023-11-24 10:20)
DX: R19.5 Other fecal abnormalities (principal); D12.2 Benign neoplasm of ascending colon; D12.5 Benign neoplasm of sigmoid colon; K57.30 Diverticulosis of large intestine without perforation or abscess without bleeding; K64.0 First degree hemorrhoids
CPT/HCPCS: 45388; 45385; 45381; 88305; C2618; J1596; J2250; J2704; Q9968

== ENCOUNTER → 2023-11-24 07:24 | Outpatient (BNV) | payer BC, SELFPAY | PROVIDERS: PCP Physician Assistant; Visit Provider Internal Medicine Gastroenterology | DX: Z12.11 Encounter for screening for malignant neoplasm of colon (principal); R19.5 Other fecal abnormalities; D12.5 Benign neoplasm of sigmoid colon; K64.0 First degree hemorrhoids | CPT/HCPCS: 45381; 45385 ==

== ENCOUNTER 2023-12-23 07:26 | Day surgery (SDC) | payer BC, SELFPAY ==
[2023-12-21 14:37] VITALS: BMI 29.7
--- NOTE | 2023-12-22 08:45 | HO.ANESPROP2 ---
Documented by User: Cassie Barksdale NP 12/22/23 08:46 HPI - Anesthesia Eval Consult details Narrative: 48yo M for Colonoscopy with Hybrid APC with adult scope PMFSH Active Problems Active Problems: All Active Problems Positive colorectal cancer screening using Cologuard test (Acute) Trigger thumb of right hand (Acute) Borderline high cholesterol (Acute) Scapular dyskinesis (Acute) Cervical spine disease (Acute) Hordeolum externum (stye) (Acute) Annual physical exam (Acute) Hordeolum externum right eye, unspecified eyelid (Acute) Family history of heart disease (Acute) Screening for hypothyroidism (Acute) Screening for hypercholesterolemia (Acute) Screening for diabetes mellitus (DM) (Acute) Past Medical History Medical History Borderline high cholesterol Family History Family History Mother DMII (diabetes mellitus, type 2) CHF (congestive heart failure) Father Pacemaker Maternal Grandfather Pancreatic cancer Maternal Uncle Bone cancer Family history of problems with anesthesia: No Surgical History Surgical History Hx of hand surgery H/O colonoscopy S/P cervical spinal fusion H/O arthroscopic knee surgery History of Problems with Anesthesia: No Social History Social History Housing: House Alcohol intake: current Alcohol intake frequency: holidays/special occasions only Alcohol type: beer Comment: counts correct Patient Tobacco Use Status: Current everyday Tobacco user Tobacco use type: Cigarette e-Cigarette/Vaping Use: Never Used Advance Directives: No Advance Directives Information Provided: Yes Advance Directives on File: No service: Yes Current occupational status: employed Current occupation: [employer] Cognitive needs: No Hearing needs: No Vision needs: No Meds Allergies Allergy/AdvReac Type Severity Reaction Status Date / Time No Known Allergies Allergy Verified 11/24/23 08:30 Exam Height,Weight and Vital Signs: Height 5 ft 10 in Weight 93.894 kg Assessment and Plan Assessment Anesthesia Assessment: Chart Reviewed Final Anesthetic Review Family History of Problems with Anesthesia: No History of Problems with Anesthesia: No Documented by User: Zulema Acosta MD 12/23/23 09:10 PMFSH Past Medical History Medical History Borderline high cholesterol Family History Family History Mother DMII (diabetes mellitus, type 2) CHF (congestive heart failure) Father Pacemaker Maternal Grandfather Pancreatic cancer Maternal Uncle Bone cancer Surgical History Surgical History Hx of hand surgery H/O colonoscopy S/P cervical spinal fusion H/O arthroscopic knee surgery Social History Social History Housing: House Alcohol intake: current Alcohol intake frequency: holidays/special occasions only Alcohol type: beer Comment: counts correct Patient Tobacco Use Status: Current everyday Tobacco user Tobacco use type: Cigarette e-Cigarette/Vaping Use: Never Used Advance Directives: No Advance Directives Information Provided: Yes Advance Directives on File: No service: Yes Current occupational status: employed Current occupation: [employer] Cognitive needs: No Hearing needs: No Vision needs: No Meds Allergies Allergy/AdvReac Type Severity Reaction Status Date / Time No Known Allergies Allergy Verified 11/24/23 08:30 Exam Airway Mallampati Class: II TM Dist: >3cm Neck ROM: Full Heart: rrr Lungs: cta Assessment and Plan Assessment Anesthesia Assessment: Anesthesia Plan Discussed Final Anesthetic Review NPO: Yes ASA Class: II Final Preanesthetic Review: No Changes in Pt Med Stat, Meds/Allgs Chart Reviewed, Consent Obtained/Reviewed and Anes Risks/Benef Reviewed Patient Risk: Low Procedure Risk: Low Anesthetic Plan Anesthetic Plan: MAC: Disposition: Standard PACU
--- NOTE | 2023-12-23 08:01 | MHC.SHP ---
Pre-Procedural Eval Section A - 24 Hr Update-Section A only Date of Service: 12/23/23 Section B - Complete if H&P > 30 days Chief Complaint: Personal history of colonic polyps Relevant Family History (Specify if Yes): No Relevant Social History: Tobacco Use Present Medications: see Short Stay Collaborative assessment Medical History: Significant History (high chol) History of Previous Operations: Relevant previous surgery/procedure and date(s) (Hx of hand surgery H/O colonoscopy S/P cervical spinal fusion H/O arthroscopic knee surgery) Allergies: Allergies Allergy/AdvReac Type Severity Reaction Status Date / Time No Known Allergies Allergy Verified 11/24/23 08:30 Review of Systems Sugical H&P ROS: Negative: Constitution, Cardiovascular, Respiratory, Neurological, Psychiatric, Hem-Onc, Allergic/Immunologic, Gastrointestinal, Genitourinary, Musculoskeletal, Integumentary, Endocrine and Eyes/Ears/Nose/Throat Exam Surgical H&P Exam: Normal: HEENT, Normal: Heart, Normal: Lungs, Normal: Extremities, Normal: Abdomen, Normal: Skin and Normal: Neurological Plan Diagnosis/Plan: Unchanged I have reviewed the history and physical and performed a pertinent physical examination on my patient. No changes have occurred unless specified. Time Spent With Patient Time: Total time managing care of this patient today ____ minutes.
[2023-12-23 08:56] VITALS: BMI 29.8
[2023-12-23 09:02] VITALS: BP 149/95; PULSE 70; RESP 16; TEMP 36.6; O2SAT 100
[2023-12-23] MEDS: Lactated Ringers 1,000 ML 100 ML IVCONT (09:11)
--- NOTE | 2023-12-23 09:14 | P.OPN-COLO_ITS ---
Colonoscopy Operative Note Operative Note Date of Service: 12/23/23 Narrative: Operative Information Procedure Description: Colonoscopy Indication: hx of advanced polyp Anesthesia: MAC COLONOSCOPY Instrument: Olympus variable stiffness Adult scope 190L Colonoscopy Monitoring: Vital signs and clinical assessment, continuous EKG monitoring, Pulse oximetry, Carbon Dioxide monitoring and blood pressure monitoring were done throughout the procedure. Colon withdrawal time was 15 minutes. Procedure: The patient was placed in the left lateral decubitis position and pre-procedure medications were administered. After a digital rectal examination of the ano-rectum, the video colonoscope was inserted into the rectum and advanced through the colon to the cecum/TI. The colonoscope was slowly withdrawn in a retrograde panoramic fashion and the colon mucosa was carefully examined including a retroflexed view of the rectum. Findings and interventions are described below. Procedure Difficulty: moderate Findings: Terminal Ileum-not intubated Cecum:normal Ascending Colon: 10 mm sessile polyp lifted with eleview and then removed with cold snare, prior resection site for lateral spreading granular polyp noted in distal ascending colon with visible scar, possible some residual adenoma on the edges so removed with biopsy forceps Transverse Colon -normal Descending Colon:normal Sigmoid Colon: 10 mm sessile polyp removed with cold snare Rectum: Retroflexion with small internal hemorrhoids seen, grade I Anorectum - normal Intervention: cold snare, eleview lift and cold forceps biopsy Colon preparation: [place] Bowel Preparation Scale Right colon; 2 Transverse colon: 2 Left colon; 2 (0 = Unprepared colon segment with mucosa not seen due to solid stool that cannot be cleared. 1 = Portion of mucosa of the colon segment seen, but other areas of the colon segment not well seen due to staining, residual stool and/or opaque liquid. 2 = Minor amount of residual staining, small fragments of stool and/or opaque liquid, but mucosa of colon segment seen well. 3 = Entire mucosa of colon segment seen well with no residual staining, small fragments of stool or opaque liquid) Impression and Post Procedure Diagnosis: colon polyps internal hemorrhoids Plan: High fiber diet leaflet Avoid straining at stool, epsom salts and sitz bath, anusol supps or cream Repeat Colonoscopy in 1 year or earlier if clinically indicated Above findings were reviewed with the patient and relevant handouts were provided if indicated.
[2023-12-23 10:01] VITALS: BP 145/99; PULSE 99; RESP 16; TEMP 36.3; O2SAT 96
[2023-12-23 10:16] VITALS: BP 128/81; PULSE 74; RESP 16; TEMP 36.4; O2SAT 98
== END 2023-12-23 10:56 | disposition home or self-care (01) ==
PROVIDERS: PCP Physician Assistant; Visit Provider Internal Medicine Gastroenterology
PROC: (CPT 45385; principal; 2023-12-23 09:50)
DX: Z12.11 Encounter for screening for malignant neoplasm of colon (principal); D12.2 Benign neoplasm of ascending colon; K63.5 Polyp of colon; K64.0 First degree hemorrhoids; Z86.010 Personal history of colon polyps
CPT/HCPCS: 45385; 45380; 45381; 88305; J2250; J2704

== ENCOUNTER → 2023-12-23 07:26 | Outpatient (BNV) | payer BC, SELFPAY | PROVIDERS: PCP Physician Assistant; Visit Provider Internal Medicine Gastroenterology | DX: Z12.11 Encounter for screening for malignant neoplasm of colon (principal); Z86.010 Personal history of colon polyps; K64.0 First degree hemorrhoids; D12.2 Benign neoplasm of ascending colon; K63.5 Polyp of colon | CPT/HCPCS: 45380; 45381; 45385 ==

== ENCOUNTER 2024-06-29 07:17 | Day surgery (SDC) | payer BC, SELFPAY ==
[2024-06-27 14:39] VITALS: BMI 29.7
--- NOTE | 2024-06-28 12:00 | P.CONAN_ITS ---
Documented by User: Cassie Barksdale NP 06/28/24 12:00 HPI - Anesthesia Eval Consult details Narrative: 48yo M for Colonoscopy PMFSH Active Problems Active Problems: All Active Problems Positive colorectal cancer screening using Cologuard test (Acute) Trigger thumb of right hand (Acute) Borderline high cholesterol (Acute) Scapular dyskinesis (Acute) Cervical spine disease (Acute) Hordeolum externum (stye) (Acute) Annual physical exam (Acute) Hordeolum externum right eye, unspecified eyelid (Acute) Family history of heart disease (Acute) Screening for hypothyroidism (Acute) Screening for hypercholesterolemia (Acute) Screening for diabetes mellitus (DM) (Acute) Past Medical History Medical History Borderline high cholesterol Family History Family History Mother DMII (diabetes mellitus, type 2) CHF (congestive heart failure) Father Pacemaker Maternal Grandfather Pancreatic cancer Maternal Uncle Bone cancer Family history of problems with anesthesia: No Surgical History Surgical History Hx of hand surgery H/O colonoscopy S/P cervical spinal fusion H/O arthroscopic knee surgery History of Problems with Anesthesia: No Social History Social History Housing: House Are you a primary primary care coordinator to a significant other at home: No Do you presently have visiting nurse or other home services: No Alcohol intake: current Alcohol intake frequency: holidays/special occasions only Alcohol type: beer Comment: counts correct Patient Tobacco Use Status: Current everyday Tobacco user Tobacco use type: Cigarette Cigarettes Per Day: 4 e-Cigarette/Vaping Use: Never Used Use of substances other than those prescribed or required for medical reasons: No Have you been hit, kicked, punched, or otherwise hurt by someone within the past year? If so, by whom?: No Advance Directives: No Advance Directives Information Provided: Yes Recently lost weight without trying: No Nutrition Risks: No Nutritional Risk Poor oral hygiene: No service: Yes Current occupational status: employed Current occupation: [employer] Cognitive needs: No Hearing needs: No Vision needs: No Meds Allergies Allergy/AdvReac Type Severity Reaction Status Date / Time No Known Allergies Allergy Verified 11/24/23 08:30 Exam Height,Weight and Vital Signs: Height 5 ft 10 in Weight 93.894 kg Assessment and Plan Assessment Anesthesia Assessment: Chart Reviewed Final Anesthetic Review Family History of Problems with Anesthesia: No History of Problems with Anesthesia: No Documented by User: Gloria Pitts MD 06/29/24 08:43 [facility] Past Medical History Medical History Borderline high cholesterol Family History Family History Mother DMII (diabetes mellitus, type 2) CHF (congestive heart failure) Father Pacemaker Maternal Grandfather Pancreatic cancer Maternal Uncle Bone cancer Surgical History Surgical History Hx of hand surgery H/O colonoscopy S/P cervical spinal fusion H/O arthroscopic knee surgery Social History Social History Housing: House Are you a primary primary care coordinator to a significant other at home: No Do you presently have visiting nurse or other home services: No Alcohol intake: current Alcohol intake frequency: holidays/special occasions only Alcohol type: beer Comment: counts correct Patient Tobacco Use Status: Current everyday Tobacco user Tobacco use type: Cigarette Cigarettes Per Day: 4 e-Cigarette/Vaping Use: Never Used Use of substances other than those prescribed or required for medical reasons: No Have you been hit, kicked, punched, or otherwise hurt by someone within the past year? If so, by whom?: No Advance Directives: No Advance Directives Information Provided: Yes Recently lost weight without trying: No Nutrition Risks: No Nutritional Risk Poor oral hygiene: No service: Yes Current occupational status: employed Current occupation: [employer] Cognitive needs: No Hearing needs: No Vision needs: No Meds Allergies Allergy/AdvReac Type Severity Reaction Status Date / Time No Known Allergies Allergy Verified 11/24/23 08:30 Exam Airway Mallampati Class: II TM Dist: >3cm Neck ROM: Full Loose/Missing/Broken Teeth: No Heart: RRR Lungs: CTA Assessment and Plan Assessment Anesthesia Assessment: Anesthesia Plan Discussed Final Anesthetic Review NPO: Yes ASA Class: II Final Preanesthetic Review: Meds/Allgs Chart Reviewed, Consent Obtained/Reviewed and Anes Risks/Benef Reviewed Patient Risk: Low Procedure Risk: Low Anesthetic Plan Anesthetic Plan: MAC: Disposition: Standard PACU
--- NOTE | 2024-06-29 07:00 | P.HPSUR_ITS ---
Pre-Procedural Eval Section A - 24 Hr Update-Section A only Date of Service: 06/29/24 Section B - Complete if H&P > 30 days Chief Complaint: Personal history of colonic polyps Relevant Family History (Specify if Yes): No Relevant Social History: None Present Medications: see Short Stay Collaborative assessment Medical History: Significant History (Borderline high cholesterol) History of Previous Operations: Relevant previous surgery/procedure and date(s) (Hx of hand surgery H/O colonoscopy S/P cervical spinal fusion H/O arthroscopic knee surgery) Allergies: Allergies Allergy/AdvReac Type Severity Reaction Status Date / Time No Known Allergies Allergy Verified 11/24/23 08:30 Review of Systems Sugical H&P ROS: Negative: Constitution, Cardiovascular, Respiratory, Neurological, Psychiatric, Hem-Onc, Allergic/Immunologic, Gastrointestinal, Genitourinary, Musculoskeletal, Integumentary, Endocrine and Eyes/Ears/Nose/Throat Exam Surgical H&P Exam: Normal: HEENT, Normal: Heart, Normal: Lungs, Normal: Ex tremities, Normal: Abdomen, Normal: Skin and Normal: Neurological Plan Diagnosis/Plan: Unchanged I have reviewed the history and physical and performed a pertinent physical examination on my patient. No changes have occurred unless specified. Time Spent With Patient Time: Total time managing care of this patient today ____ minutes.
[2024-06-29 07:27] VITALS: BMI 30.6
[2024-06-29 07:46] VITALS: BP 141/93; PULSE 67; RESP 14; TEMP 36.6; O2SAT 98
[2024-06-29] MEDS: Lactated Ringers 1,000 ML 100 ML IVCONT (07:54)
[2024-06-29 08:55] VITALS: BP 156/73; PULSE 50; RESP 12; TEMP 36.7; O2SAT 98
--- NOTE | 2024-06-29 09:21 | HO.OPN-COLON ---
Colonoscopy Operative Note Operative Note Date of Service: 06/29/24 Narrative: Operative Information Procedure Description: Colonoscopy Indication: polyp with low grade dysplasia Anesthesia: MAC COLONOSCOPY Instrument: Olympus variable stiffness pediatric scope 190L Colonoscopy Monitoring: Vital signs and clinical assessment, continuous EKG monitoring, Pulse oximetry, Carbon Dioxide monitoring and blood pressure monitoring were done throughout the procedure. Colon withdrawal time was 16 minutes. Procedure: The patient was placed in the left lateral decubitis position and pre-procedure medications were administered. After a digital rectal examination of the ano-rectum, the video colonoscope was inserted into the rectum and advanced through the colon to the cecum/TI. The colonoscope was slowly withdrawn in a retrograde panoramic fashion and the colon mucosa was carefully examined including a retroflexed view of the rectum. Findings and interventions are described below. Procedure Difficulty: easy Findings: Terminal Ileum-normal Cecum:normal Ascending Colon: scar noted from prior polyp resection in distal/mid ascending colon, residual adenomatous appearing tissue noted at the edges, raised with eleview injection but could not grab on to the tissue. Jumbo biopsy used to excise and then the area ablated with cautery. Brushings also taken for WATS Transverse Colon -normal Descending Colon: 6-9 mm sessile polyp removed with cold snare, 4-5 mm sessile polyp removed with cold forceps Sigmoid Colon: normal Rectum: Retroflexion with small internal hemorrhoids seen, grade I Anorectum - normal Intervention: cold snare, eleview injection, brushings, cold forceps excision Colon preparation: [place] Bowel Preparation Scale Right colon; 3 Transverse colon: 3 Left colon; 3 (0 = Unprepared colon segment with mucosa not seen due to solid stool that cannot be cleared. 1 = Portion of mucosa of the colon segment seen, but other areas of the colon segment not well seen due to staining, residual stool and/or opaque liquid. 2 = Minor amount of residual staining, small fragments of stool and/or opaque liquid, but mucosa of colon segment seen well. 3 = Entire mucosa of colon segment seen well with no residual staining, small fragments of stool or opaque liquid) Impression and Post Procedure Diagnosis: colon polyps internal hemorrhoids Plan: High fiber diet leaflet Avoid straining at stool, epsom salts and sitz bath, anusol supps or cream Repeat Colonoscopy in 1 year or earlier if clinically indicated or if ongoing dysplasia Above findings were reviewed with the patient and relevant handouts were provided if indicated.
[2024-06-29 09:25] VITALS: BP 110/62; PULSE 90; RESP 18; TEMP 36.2; O2SAT 95
[2024-06-29 09:40] VITALS: BP 127/85; PULSE 78; RESP 18; TEMP 36.6; O2SAT 97
== END 2024-06-29 10:09 | disposition home or self-care (01) ==
PROVIDERS: PCP Physician Assistant; Visit Provider Internal Medicine Gastroenterology
PROC: 0DJD8ZZ Inspection of Lower Intestinal Tract, Via Natural or Artificial Opening Endoscopic (ICD-10-PCS; CPT 45378; principal; 2024-06-29 08:30)
DX: Z12.11 Encounter for screening for malignant neoplasm of colon (principal); Z86.0101 Personal history of adenomatous and serrated colon polyps; K63.5 Polyp of colon; K62.1 Rectal polyp; K64.0 First degree hemorrhoids; E78.5 Hyperlipidemia, unspecified; Z98.890 Other specified postprocedural states; F17.210 Nicotine dependence, cigarettes, uncomplicated
CPT/HCPCS: 45385; 45380; 45381; 88305; J2003; J2250; J2704

== ENCOUNTER → 2024-06-29 07:17 | Outpatient (BNV) | payer BC, SELFPAY | PROVIDERS: PCP Physician Assistant; Visit Provider Internal Medicine Gastroenterology | DX: Z86.0100 Personal history of colon polyps, unspecified (principal); K63.5 Polyp of colon; K64.0 First degree hemorrhoids | CPT/HCPCS: 45380; 45381; 45385 ==

== ENCOUNTER 2025-05-23 09:01 | Day surgery (SDC) | payer BC, SELFPAY ==
--- NOTE | 2025-05-22 11:06 | HO.ANESPROP2 ---
Documented by User: Betty Vang NP 05/22/25 11:06 HPI - Anesthesia Eval Consult details Narrative: 49 yr old male for colonoscopy PMFSH Active Problems Active Problems: All Active Problems Positive colorectal cancer screening using Cologuard test (Acute) Trigger thumb of right hand (Acute) Borderline high cholesterol (Acute) Scapular dyskinesis (Acute) Cervical spine disease (Acute) Hordeolum externum (stye) (Acute) Annual physical exam (Acute) Hordeolum externum right eye, unspecified eyelid (Acute) Family history of heart disease (Acute) Screening for hypothyroidism (Acute) Screening for hypercholesterolemia (Acute) Screening for diabetes mellitus (DM) (Acute) Past Medical History Medical History Borderline high cholesterol Family History Family History Mother DMII (diabetes mellitus, type 2) CHF (congestive heart failure) Father Pacemaker Maternal Grandfather Pancreatic cancer Maternal Uncle Bone cancer Family history of problems with anesthesia: No Surgical History Surgical History Hx of hand surgery H/O colonoscopy S/P cervical spinal fusion H/O arthroscopic knee surgery History of Problems with Anesthesia: No Social History Social History Housing: House Are you a primary intensive care specialist to a significant other at home: No Do you presently have visiting nurse or other home services: No Alcohol intake: current Alcohol intake frequency: holidays/special occasions only Alcohol type: beer Comment: counts correct Patient Tobacco Use Status: Former Tobacco user Tobacco use type: Cigarette Cigarettes Per Day: 4 e-Cigarette/Vaping Use: Never Used Use of substances other than those prescribed or required for medical reasons: No Are you DNR?: No Advance Directives: No Advance Directives Information Provided: Yes Poor oral hygiene: No service: Yes Current occupational status: employed Current occupation: [employer] Cognitive needs: No Hearing needs: No Vision needs: No Meds Allergies Allergy/AdvReac Type Severity Reaction Status Date / Time No Known Allergies Allergy Verified 11/24/23 08:30 Home Medications ?Medication ?Instructions ?Recorded ?Confirmed ?Last Taken ?Type No Known Home Meds 05/23/25 05/23/25 Unknown History Exam Airway Adult Head Mouth w/Numbe Teeth:  1. Chipped Assessment and Plan Final Anesthetic Review Family History of Problems with Anesthesia: No History of Problems with Anesthesia: No Documented by User: Tavares Chin MD 05/23/25 10:52 [facility] Past Medical History Medical History Borderline high cholesterol Family History Family History Mother DMII (diabetes mellitus, type 2) CHF (congestive heart failure) Father Pacemaker Maternal Grandfather Pancreatic cancer Maternal Uncle Bone cancer Surgical History Surgical History Hx of hand surgery H/O colonoscopy S/P cervical spinal fusion H/O arthroscopic knee surgery Social History Social History Housing: House Are you a primary intensive care specialist to a significant other at home: No Do you presently have visiting nurse or other home services: No Alcohol intake: current Alcohol intake frequency: holidays/special occasions only Alcohol type: beer Comment: counts correct Patient Tobacco Use Status: Former Tobacco user Tobacco use type: Cigarette Cigarettes Per Day: 4 e-Cigarette/Vaping Use: Never Used Use of substances other than those prescribed or required for medical reasons: No Are you DNR?: No Advance Directives: No Advance Directives Information Provided: Yes Poor oral hygiene: No service: Yes Current occupational status: employed Current occupation: [employer] Cognitive needs: No Hearing needs: No Vision needs: No Meds Allergies Allergy/AdvReac Type Severity Reaction Status Date / Time No Known Allergies Allergy Verified 11/24/23 08:30 Home Medications ?Medication ?Instructions ?Recorded ?Confirmed ?Last Taken ?Type No Known Home Meds 05/23/25 05/23/25 Unknown History Exam Exam Date and Time: 9/30/25 Airway TM Dist: >3cm Neck ROM: Full Adult Head Mouth w/Numbe Teeth:  1. Chipped Heart: RRR Lungs: CTAB VESICULAR Assessment and Plan Assessment Anesthesia Assessment: Anesthesia Plan Discussed Final Anesthetic Review NPO: Yes ASA Class: II Final Preanesthetic Review: No Changes in Pt Med Stat, Meds/Allgs Chart Reviewed, Consent Obtained/Reviewed and Anes Risks/Benef Reviewed Patient Risk: Low Procedure Risk: Low Anesthetic Plan Anesthetic Plan: MAC: Disposition: Standard PACU
[2025-05-23 09:45] VITALS: BMI 29.8
[2025-05-23 09:59] VITALS: BP 137/89; PULSE 76; RESP 16; TEMP 36.2; O2SAT 96
--- NOTE | 2025-05-23 10:02 | MHC.SHP ---
Pre-Procedural Eval Section A - 24 Hr Update-Section A only Date of Service: 05/23/25 Section B - Complete if H&P > 30 days Chief Complaint: Polyp of colon Relevant Family History (Specify if Yes): No Relevant Social History: None Present Medications: see Short Stay Collaborative assessment Medical History: Significant History (cholesterol ) History of Previous Operations: Relevant previous surgery/procedure and date(s) (Hx of hand surgery H/O colonoscopy S/P cervical spinal fusion H/O arthroscopic knee surgery) Allergies: Allergies Allergy/AdvReac Type Severity Reaction Status Date / Time No Known Allergies Allergy Verified 11/24/23 08:30 Review of Systems Sugical H&P ROS: Negative: Constitution, Cardiovascular, Respiratory, Neurological, Psychiatric, Hem-Onc, Allergic/Immunologic, Gastrointestinal, Genitourinary, Musculoskeletal, Integumentary, Endocrine and Eyes/Ears/Nose/Throat Exam Surgical H&P Exam: Normal: HEENT, Normal: Heart, Normal: Lungs, Normal: Extremities, Normal: Abdomen, Normal: Skin and Normal: Neurological Plan Diagnosis/Plan: Unchanged I have reviewed the history and physical and performed a pertinent physical examination on my patient. No changes have occurred unless specified. Time Spent With Patient Time: Total time managing care of this patient today ____ minutes.
[2025-05-23] MEDS: Lactated Ringers 1,000 ML 100 ML IVCONT (10:14)
--- NOTE | 2025-05-23 11:32 | P.OPN-COLO_ITS ---
Colonoscopy Operative Note Operative Note Date of Service: 05/23/25 Narrative: Operative Information Procedure Description: Colonoscopy Indication: hx of colon polyp Anesthesia: MAC COLONOSCOPY Instrument: Olympus variable stiffness pediatric scope 190L Colonoscopy Monitoring: Vital signs and clinical assessment, continuous EKG monitoring, Pulse oximetry, Carbon Dioxide monitoring and blood pressure monitoring were done throughout the procedure. Colon withdrawal time was 15 minutes. Procedure: The patient was placed in the left lateral decubitis position and pre-procedure medications were administered. After a digital rectal examination of the ano-rectum, the video colonoscope was inserted into the rectum and advanced through the colon to the cecum/TI. The colonoscope was slowly withdrawn in a retrograde panoramic fashion and the colon mucosa was carefully examined including a retroflexed view of the rectum. Findings and interventions are described below. Procedure Difficulty: easy Findings: Terminal Ileum-normal Cecum:normal Ascending Colon: mid ascending area scar noted from prior resection and there appeared to be adenomatous tissue around this. this was raised with eleview and then removed with cold snare, edges removed with hot and colod biopsy. APC was then applied to the edges and base of the resection area. Tattoo was placed 1 cm distal to the area. Transverse Colon -normal Descending Colon:normal Sigmoid Colon: 4-6 mm sessile polyp removed with cold snare. Rectum: Retroflexion with small internal hemorrhoids seen, grade I Anorectum - normal Intervention: cold snare, cold forceps, eleview, APC Colon preparation: [place] Bowel Preparation Scale Right colon; 2 Transverse colon: 2 Left colon; 2 (0 = Unprepared colon segment with mucosa not seen due to solid stool that cannot be cleared. 1 = Portion of mucosa of the colon segment seen, but other areas of the colon segment not well seen due to staining, residual stool and/or opaque liquid. 2 = Minor amount of residual staining, small fragments of stool and/or opaque liquid, but mucosa of colon segment seen well. 3 = Entire mucosa of colon segment seen well with no residual staining, small fragments of stool or opaque liquid) Impression and Post Procedure Diagnosis: colon polyps internal hemorrhoids Plan: High fiber diet leaflet Avoid straining at stool, epsom salts and sitz bath, anusol supps or cream Repeat Colonoscopy in 1 year or earlier if clinically indicated--if ongoing dysplasia then refer for surgical evaluation Above findings were reviewed with the patient and relevant handouts were provided if indicated.
[2025-05-23 11:38] VITALS: BP 126/77; PULSE 88; RESP 16; TEMP 36.9; O2SAT 96
[2025-05-23 11:53] VITALS: BP 130/83; PULSE 80; RESP 18; TEMP 36.3; O2SAT 97
== END 2025-05-23 12:32 | disposition home or self-care (01) ==
PROVIDERS: PCP Physician Assistant; Visit Provider Internal Medicine Gastroenterology
PROC: 0DJD8ZZ Inspection of Lower Intestinal Tract, Via Natural or Artificial Opening Endoscopic (ICD-10-PCS; CPT 45378; principal; 2025-05-23 11:40)
DX: Z12.11 Encounter for screening for malignant neoplasm of colon (principal); Z86.0101 Personal history of adenomatous and serrated colon polyps; D12.2 Benign neoplasm of ascending colon; K63.5 Polyp of colon; K57.30 Diverticulosis of large intestine without perforation or abscess without bleeding; K64.0 First degree hemorrhoids; E78.00 Pure hypercholesterolemia, unspecified; Z98.890 Other specified postprocedural states
CPT/HCPCS: 45385; 45380; 45381; 88305; C1889; J2003; J2704; J3010

== ENCOUNTER → 2025-05-23 09:01 | Outpatient (BNV) | payer BC, SELFPAY | PROVIDERS: PCP Physician Assistant; Visit Provider Internal Medicine Gastroenterology | DX: Z12.11 Encounter for screening for malignant neoplasm of colon (principal); D12.2 Benign neoplasm of ascending colon; D12.5 Benign neoplasm of sigmoid colon; K64.0 First degree hemorrhoids | CPT/HCPCS: 45381; 45385 ==